=== PATIENT | male | born 1940 | race Caucasian/White ===

== ENCOUNTER 2017-06-26 09:05 | Emergency (ER) | payer MEDICARE, BC ==
[2017-06-26 09:22] VITALS: BP 147/75
--- NOTE | 2017-06-26 12:59 | UC ---
Gen Polk Nilda, scribed for Vilma Henderson DO on 06/26/17 at 1016 . Respiratory Complaint HPI - HPI Summary HPI Summary: This patient is a 76 year old M presenting to [facility] with a chief complaint of constant, progressively worsening URI-like symptoms for the past few days. The patient rates the pain 3/10 in severity. Symptoms aggravated by deep breaths and alleviated by Robitussin. Patient reports productive cough (milky, yellow), hoarseness, sinus pressure/congestion, mild headache, low grade fever (99F), CP secondary to cough (resolved), sore throat, and ear congestion. Patient denies abnormal unsteadiness or confusion. Pt states he has had post nasal drip for the past month and a Hx of allergies. NKDA. - History of Current Complaint Chief Complaint: UCGeneralIllness Stated Complaint: chest congestion Time Seen by Provider: 06/26/17 09:28 Hx Obtained From: Patient Onset/Duration: Sudden Onset, Lasting Days, Still Present Timing: Constant Severity Currently: Mild Pain Intensity: 3 Pain Scale Used: 0-10 Numeric Character: Cough: Productive, Sputum Description: - white Aggravating Factors: Deep Breaths Alleviating Factors: OTC Meds - Robitussin Associated Signs And Symptoms: Positive: Fever, Pleuritic Chest Pain, URI, Nasal Congestion, Hoarseness, Sinus Discomfort - Allergies/Home Medications Allergies/Adverse Reactions: Allergies Allergy/AdvReac Type Severity Reaction Status Date / Time No Known Allergies Allergy Verified 06/26/17 09:22 PMH/Surg Hx/FS Hx/Imm Hx Previously Healthy: Yes Respiratory History: Other Other Respiratory History: seasonal allergies - Surgical History Surgical History: Yes Surgery Procedure, Year, and Place: tonsils 1948, right wrist fractured navicular x 2 1960, 1963, arthroscopy left knee 1990. Left knee replaced 2016 - Family History Known Family History: Negative: Hypertension, Diabetes - Social History Occupation: Employed Full-time Lives: With Family Alcohol Use: Occasionally Alcohol Amount: 3-4 weekly Substance Use Type: None Smoking Status (MU): Never Smoked Tobacco - Immunization History Most Recent Influenza Vaccination: 2016 Most Recent Tetanus Shot: up to date Most Recent Pneumonia Vaccination: 2014 Review of Systems Constitutional: Fever ENT: Sore Throat, Ear Ache - congestion, Sinus Congestion, Sinus Pain/Tenderness , Other - post nasal drip 1 month Respiratory: Cough, Other - hoarsness Cardiovascular: Chest Pain - secondary to cough Neurological: Headache, Other - negative abnormal unsteadiness or confusion. All Other Systems Reviewed And Are Negative: Yes Physical Exam Triage Information Reviewed: Yes Appearance: Well-Appearing, No Pain Distress, Well-Nourished Vital Signs: Initial Vital Signs Temp 99.1 F 06/26/17 09:13 Pulse 76 06/26/17 09:13 Resp 20 06/26/17 09:13 BP 147/75 06/26/17 09:13 Pulse Ox 100 06/26/17 09:13 Vital Signs Reviewed: Yes Eyes: Positive: Conjunctiva Clear. Negative: Discharge ENT: Positive: Hearing grossly normal, TMs normal, Other - Pale and boggy nasal mucosa. Negative: Tonsillar swelling, Tonsillar exudate, Trismus, Muffled voice , Hoarse voice Neck exam: Normal Neck: Positive: Supple Respiratory: Positive: Lungs clear, No respiratory distress, No accessory muscle use, Other: - Prolonged expiration at the bases Cardiovascular: Positive: RRR, No Murmur Abdomen Description: Positive: Nontender, Soft. Negative: Distended, Guarding Bowel Sounds: Positive: Present Musculoskeletal Exam: Normal Neurological: Positive: Alert, Muscle Tone Normal Psychological Exam: Normal Psychological: Positive: Age Appropriate Behavior Skin Exam: Normal Skin: Positive: Other - Warm, Dry, Normal color UC Diagnostic Evaluation - Laboratory O2 Sat by Pulse Oximetry: 100 Respiratory Course/Dx - Course Course Of Treatment: This patient is a 76 year old M presenting to [facility] with a chief complaint of constant, progressively worsening URI-like symptoms for the past few days. The patient rates the pain 3/10 in severity. Symptoms aggravated by deep breaths and alleviated by Robitussin. Patient reports productive cough ( milky, yellow), hoarseness, sinus pressure/congestion, mild headache, low grade fever (99F), CP secondary to cough (resolved), sore throat, and ear congestion. Patient denies abnormal unsteadiness or confusion. Pt states he has had post nasal drip for the past month and a Hx of allergies. NKDA. Patient will be discharged with a Dx of bronchospasms and sinusitis, prescriptions for Mucinex, Augmentin, Alubuterol, and Tessalon, and follow up from PCP. The patient is agreeable with this plan. Medications reviewed. Allergies reviewed. - Differential Dx/Diagnosis Provider Diagnoses: sinusitis and bronchospasms Discharge - Discharge Plan Condition: Stable Disposition: HOME Prescriptions: Albuterol HFA INHALER* [Ventolin HFA Inhaler*] 2 puff INH Q4H PRN #1 mdi PRN Reason: Sob/Wheezing Amoxicillin/Clavulanate TAB* [Augmentin TAB 875*] 875 mg PO BID #20 tab Benzonatate CAP* [Tessalon 100 MG CAP*] 100 mg PO TID #30 cap guaiFENesin ER TAB [Mucinex*] 600 mg PO BID PRN #1 box PRN Reason: Cough Patient Education Materials: Sinusitis (ED), Bronchospasm (ED) Referrals: Dakota Wright MD [Primary Care Provider] - If Needed Additional Instructions: TRY USING THE NETTI POT IN THE MORNINGS DISCUSSED. YOU MUST ALWAYS USE CLEAN WATER. REMEMBER, POSTURE IS AN IMPORTANT FACTOR IN SINUS DRAINAGE. MOVE YOUR NECK, BREATHE. INHALED BRONCHODILATORS: You have received a prescription for an inhaled bronchodilator -- a medication which stimulates the airways in the lung to dilate. This improves the flow of air in asthma, bronchitis, and emphysema. These medicines have some similarity to adrenaline, and can cause similar side effects: shakiness, racing heart, and a sense of nervousness. These side effects decrease with time. Contact your doctor if these side effects are severe. Do not over-use the medicine. Too-frequent use of the inhaler may make it ineffective. Call your doctor if the inhaler is not controlling your symptoms at the prescribed doses. EXPECTORANT MEDICATION: WE SENT IN A SCRIPT FOR MUCINEX SO THAT IT IS EASIER FOR YOU TO PICK THE RIGHT MED AT THE PHARMACY. HOWEVER, YOU CAN ALSO GO TO THE [employer] [facility] AND BUY PLAIN GUAIFENESIN WITHOU BINDERS OR FILLERS. An expectorant medicine has been prescribed. This type of drug makes mucous thinner, helping the sinuses, nose, and bronchial tubes to remain free of pus and mucous. Expectorants make a cough less severe and more comfortable, and help infected sinuses drain. In general, antihistamines defeat the purpose of the expectorant by making mucous thicker. They should be avoided unless specifically recommended by your physician. TESSALON PERLES: You have received a prescription for Tessalon Perles (benzonatate). This is a non-narcotic medicine for relief of cough. It usually works in about 15- 20 minutes and lasts around four hours. Tessalon Perles should be swallowed. They should not be chewed or dissolved in the mouth (this can produce temporary numbing of the mouth and choking can occur). If you develop any adverse effects such as wheezing, shortness of breath, hives, rash, itching, or lightheadedness, please return at once. The documentation as recorded by the Gen grewal Nilda accurately reflects the service I personally performed and the decisions made by me, Vilma Henderson DO.
== END 2017-06-26 10:57 | disposition home or self-care (01) ==
LOC: UCEAST 09:05
DX: J32.9 Chronic sinusitis, unspecified (principal); J98.01 Acute bronchospasm; Z96.652 Presence of left artificial knee joint
CPT/HCPCS: 99212; G0463

== ENCOUNTER 2018-11-14 10:28 | Emergency (ER) | payer MEDICARE, BC ==
[2018-11-14 10:49] VITALS: BP 126/67
--- NOTE | 2018-11-14 10:52 | UC ---
Skin Complaint HPI - HPI Summary HPI Summary: 78 yo male presents with tick bite to left knee. He tells me that he noticed this yesterday after mowing the lawn. His removed it this morning. He has the tick with him and does not appeared engorged. Denies pain or drainage to the site. - History of Current Complaint Chief Complaint: UCSkin Time Seen by Provider: 11/14/18 10:52 Stated Complaint: TICK BITE LT KNEE Hx Obtained From: Patient Onset/Duration: Sudden Onset Current Severity: None Pain Intensity: 0 - Allergy/Home Medications Allergies/Adverse Reactions: Allergies Allergy/AdvReac Type Severity Reaction Status Date / Time dust Allergy Mild See Comment Uncoded 11/14/18 10:49 PMH/Surg Hx/FS Hx/Imm Hx - Additional Past Medical History Additional PMH: None - Surgical History Surgical History: Yes Surgery Procedure, Year, and Place: tonsils 1947, right wrist fractured navicular x 2 1960, 1963, arthroscopy left knee 1990. Left knee replaced 2016 - Family History Known Family History: Negative: Hypertension, Diabetes - Social History Occupation: Retired Lives: With Family Alcohol Use: Occasionally Alcohol Amount: 3-4 weekly Substance Use Type: None Smoking Status (MU): Never Smoked Tobacco - Immunization History Most Recent Influenza Vaccination: 2016 Most Recent Tetanus Shot: up to date Most Recent Pneumonia Vaccination: 2014 Review of Systems All Other Systems Reviewed And Are Negative: Yes Constitutional: Positive: Negative Skin: Positive: Other - Left knee tick bite Neurovascular: Positive: Negative Musculoskeletal: Positive: Negative Neurological: Positive: Negative Psychological: Positive: Negative Physical Exam - Summary Physical Exam Summary: GENERAL: NAD. WDWN. No pain distress. SKIN: Lateral left knee: there is a 7mm diameter of mild erythema and edema with central 3mm area of superficial skin loss. No streaking, bleeding, or drainage. CHEST: No accessory muscle use. Breathing comfortably and in no distress. CV: Pulses intact. Cap refill <2seconds NEURO: Alert. PSYCH: Age appropriate behavior. Triage Information Reviewed: Yes Vital Signs: Initial Vital Signs Temp 99 F 11/14/18 10:47 Pulse 60 11/14/18 10:47 Resp 16 11/14/18 10:47 BP 126/67 11/14/18 10:47 Pulse Ox 100 11/14/18 10:47 Vital Signs Reviewed: Yes Course/Dx - Course Course Of Treatment: Tick with him is not engorged and was attached ~24hours. Discussed that pt is low risk for lyme disease transmission, but he prefers prophylactic treatment today. He was given doxycycline 200mg in the clinic and advised to monitor the site for signs/symptoms of lyme and f/u if he develops - Diagnoses Provider Diagnosis: Tick bite Discharge - Sign-Out/Discharge Documenting (check all that apply): Patient Departure All imaging exams completed and their final reports reviewed: No Studies - Discharge Plan Condition: Stable Disposition: HOME Patient Education Materials: Lyme Disease (ED), Tick Bite (ED) Referrals: Dakota Wright MD [Primary Care Provider] - Additional Instructions: TICK BITE: You have been bitten by a tick. Once the tick is removed, these "bites" usually cause no problems. Tick fever, tick paralysis, [place] Spotted fever, and Lyme disease are uncommon -- but you should mention this tick bite to your doctor if you develop unusual symptoms in the next several weeks. If you develop any of the following, please see your physician promptly: (1) Fever, chills, or generalized malaise associated with a headache. (2) A red round area at the site of the bite (or elsewhere) (3) Joint pain, joint swelling or generalized weakness. (4) Redness, swelling, or drainage at the site of the bite. Ticks do not have a typical "head" attached to their body. There are mouth parts sticking out which they use to feed. If there are mouth parts left behind in the wound there is NO increased risk of Lyme infection or disease transmission. If mouth parts remain after tick removal, the best thing to do is apply warm soaks to the area 3-4 times per day to encourage the skin to expel the foreign material. WHEN A TICK IS NOT ENGORGED AND HAS BEEN ON LESS THAN 24 HOURS - THE RISK FOR LYME IS NEGLIGIBLE. YOU CAN REMOVE THE TICK AND OBSERVE THE AREA ON YOUR OWN. - Billing Disposition and Condition Condition: STABLE Disposition: Home
[2018-11-14] MEDS ORDERED: DOXYcycline CAP(*) 100 MG PO ONE (10:57)
== END 2018-11-14 11:00 | disposition home or self-care (01) ==
LOC: UCEAST 10:28
DX: T63.481A Toxic effect of venom of other arthropod, accidental (unintentional), initial encounter (principal); Y93.H9 Activity, other involving exterior property and land maintenance, building and construction; Y92.007 Garden or yard of unspecified non-institutional (private) residence as the place of occurrence of the external cause
CPT/HCPCS: 99212; A9270-GY; G0463

== ENCOUNTER 2022-07-30 05:54 | Observation (INO) ==
[2022-07-30] MEDS ORDERED: Lactated Ringers 1000 ml BAG 1,000 ML IV SCH (06:00)
[2022-07-30] MEDS ORDERED: Buffered Lidocaine 1% SYRIN 1 ml INTRADERM ONE (06:00)
[2022-07-30] MEDS ORDERED: ceFAZolin 2 GM PREMIX 2 GM/50 ML BAG ONE (06:10)
[2022-07-30] MEDS ORDERED: ROPIVACAINE 5 MG/ML 30 ML BTL (0.5%) ONE (06:39)
[2022-07-30] MEDS ORDERED: Lidocaine 2% PF 5 ML VIAL ONE (07:03)
[2022-07-30] MEDS ORDERED: Phenylephrine IV 10 MG/ML 1 ml VIAL ONE (07:03)
[2022-07-30] MEDS ORDERED: fentaNYL 100 mcg/2 ml 50 MCG/ML VIAL ONE (07:03)
[2022-07-30] MEDS ORDERED: Ondansetron 4 mg VIAL 2 MG/ML 2 ml VIAL ONE (08:22)
[2022-07-30] MEDS ORDERED: Dexamethasone IV 4 MG/ML VIAL 1 ml VIAL ONE ×2 (08:22→09:35)
[2022-07-30] MEDS ORDERED: Acetaminophen IV 1 GM/100ML 1,000 MG/100 ML BAG IV ONE (08:37)
[2022-07-30] MEDS ORDERED: Glycopyrrolate IV 0.2 MG/ML 1 ML VIAL ONE (08:39)
[2022-07-30] MEDS ORDERED: Propofol 10 MG/ML 20 ML BTL ONE ×2 (08:41→08:55)
[2022-07-30] MEDS ORDERED: Magnesium Hydroxide LIQ 30 ML UDC PO PRN (10:16)
[2022-07-30] MEDS ORDERED: Ondansetron ODT 4 mg TAB 4 MG TAB PO PRN (10:16)
[2022-07-30] MEDS ORDERED: Ondansetron 4 mg VIAL 2 MG/ML 2 ml VIAL IV PRN (10:16)
[2022-07-30] MEDS ORDERED: Morphine 2 MG/ML SYRINGE IV PRN (10:16)
[2022-07-30] MEDS: Lactated Ringers 1000 ml BAG 1,000 ML IV SCH ×2 (11:45→22:29)
[2022-07-30] MEDS: Lactulose 30 ml UDC PO PRN ×2 (12:33→22:59)
[2022-07-30] MEDS: ceFAZolin 1 GM ADVAN 1 GM in NS 0.9% 50 ML 50 ML IVPB SCH ×2 (16:44→23:06)
[2022-07-30] MEDS: PTO:Multivitamins/Mins AREDS2 (NF) CAP PO SCH ×3 (16:45→21:09)
[2022-07-30] MEDS: Magnesium Hydroxide LIQ 30 ML UDC PO SCH (20:56)
[2022-07-31 07:18] LABS: Hematocrit 35 % (42-52); Hemoglobin 12.2 g/dL (14.0-18.0); Mean Platelet Volume 7.3 fL (7.4-10.4); Platelet Count 218 10^3/uL (150-450)
[2022-07-31 07:36] LABS: Calcium 8.8 mg/dL (8.6-10.3); Creatinine, Serum 0.94 mg/dL (0.67-1.17); eGFR CKD-EPI 81.9 (>60)
[2022-07-31] MEDS: PTO:Multivitamins/Mins AREDS2 (NF) CAP PO SCH (08:55)
[2022-07-31] MEDS: ceFAZolin 1 GM ADVAN 1 GM in NS 0.9% 50 ML 50 ML IVPB SCH (08:57)
[2022-07-31] MEDS ORDERED: PTO: Mirabegron 50 mg ER TAB (NF) PO SCH (09:00)
[2022-07-31] MEDS ORDERED: Vitamin THERAPEUTIC TAB PO SCH (09:00)
[2022-07-31] MEDS: Magnesium Hydroxide LIQ 30 ML UDC PO SCH (09:10)
[2022-07-31] MEDS ORDERED: Lactated Ringers 1000 ml BAG 1,000 ML IV ONE (10:29)
[2022-07-31 15:44] VITALS: BP 133/53
== END 2022-07-31 18:40 | disposition home or self-care (01) ==
LOC: SSU 05:54 → OR 05:54
PROVIDERS: ADMIT Orthopaedic Surgery Adult Reconstructive Orthopaedic Surgery; ATTEND Orthopaedic Surgery Adult Reconstructive Orthopaedic Surgery

== ENCOUNTER 2024-06-22 10:02 | Observation (INO) ==
[~2024-06-22 10:02] MED LIST: Naloxone 0.4 mg VIAL 0.4 mg/ml 1 ml VIAL IV PRN; Ondansetron 4 mg VIAL 2 MG/ML 2 ml VIAL IV PRN; ROPIVACAINE 5 MG/ML 30 ML BTL (0.5%) ONE; fentaNYL 100 mcg/2 ml 50 MCG/ML VIAL IV PRN
[2024-06-22] MEDS: Famotidine IV 10 MG/ML 2 ml VIAL (20 mg) IV ONE ×2 (11:55→12:38)
[2024-06-22] MEDS ORDERED: Famotidine IV 10 MG/ML 2 ml VIAL (20 mg) ONE (11:56)
[2024-06-22] MEDS ORDERED: ceFAZolin 2 GM PREMIX 2 GM/50 ML BAG ONE (11:56)
[2024-06-22] MEDS ORDERED: Tranexamic Acid 1 GM/100ML BAG 2,000 MG/200 ML BAG IV ONE (11:56)
[2024-06-22] MEDS: Buffered Lidocaine 1% SYRIN 1 ml INTRADERM ONE ×2 (12:10→12:11)
[2024-06-22 12:43] LABS: Rapid COVID-19 Molecular Undetected (Undetected)
[2024-06-22] MEDS ORDERED: Dexamethasone IV 4 MG/ML VIAL 1 ml VIAL ONE (13:09)
[2024-06-22] MEDS ORDERED: Midazolam 2 mg/2 ml VIAL 1 mg/ml 2 ml VIAL (2 mg) ONE (13:09)
[2024-06-22] MEDS ORDERED: ROPIVACAINE 5 MG/ML 30 ML BTL (0.5%) ONE (13:11)
[2024-06-22] MEDS ORDERED: fentaNYL 100 mcg/2 ml 50 MCG/ML VIAL ONE (13:35)
[2024-06-22] MEDS ORDERED: Morphine 2 MG/ML SYRINGE IV PRN (16:48)
[2024-06-22] MEDS ORDERED: Ondansetron ODT 4 mg TAB 4 MG TAB PO PRN (16:48)
[2024-06-22] MEDS ORDERED: Magnesium Hydroxide LIQ 30 ML UDC PO PRN (16:48)
[2024-06-22] MEDS ORDERED: Calcium Carb (TUMS) 500 mg CHEW TAB PO PRN (16:48)
[2024-06-22] MEDS ORDERED: Ondansetron 4 mg VIAL 2 MG/ML 2 ml VIAL IV PRN (16:48)
[2024-06-22] MEDS ORDERED: Lactulose 30 ml UDC PO PRN (16:48)
[2024-06-22] MEDS: Lactated Ringers 1000 ml BAG 1,000 ML IV SCH ×3 (18:30→18:48)
[2024-06-22] MEDS: Magnesium Hydroxide LIQ 30 ML UDC PO SCH (20:14)
[2024-06-22] MEDS: ceFAZolin 2 GM PREMIX 2 GM/50 ML BAG IV SCH (22:47)
[2024-06-22] MEDS: Multivitamins/Mins AREDS2 (NF) CAP PO SCH (23:33)
[2024-06-23 06:44] LABS: Hematocrit 36.8 % (38-53); Hemoglobin 13.1 g/dL (13.2-16.3); Mean Platelet Volume 7.2 fL (7.5-11.2); Platelet Count 269 10^3/uL (150-450)
[2024-06-23 07:00] LABS: Potassium 3.9 mmol/L (3.5-5.0); eGFR CKD-EPI 75.1 (>60)
[2024-06-23] MEDS: Vitamin THERAPEUTIC TAB PO SCH (09:36)
[2024-06-23] MEDS: Mirabegron 50 mg ER TAB (NF) PO SCH (10:19)
[2024-06-23] MEDS: CMCS: Mirabegron 25 mg ER TAB (NF) PO SCH (13:20)
[2024-06-23 13:56] VITALS: BP 149/62
== END 2024-06-23 14:20 | disposition home or self-care (01) ==
LOC: OR 10:02 → SSU 10:02
PROVIDERS: ADMIT Student in an Organized Health Care Education/Training Program; ATTEND Orthopaedic Surgery Adult Reconstructive Orthopaedic Surgery